=== PATIENT | female | born 1980 | race Two or more races ===

== ENCOUNTER 2022-09-10 12:12 | Emergency (ER) | payer OTHER ==
[2022-09-10 12:20] VITALS: BMI 38.1
[2022-09-10 13:50] LABS: HCG,QUALITATIVE URINE Negative
[2022-09-10 13:52] LABS: EPI CELLS 5 /uL (0-25.1); HYALINE CASTS 0 /uL (0-3.1); PH,URINE 6.5 (5.0-8.0); URINE APPEARANCE CLEAR; URINE BACTERIA 163 /uL (0-1359); URINE BILIRUBIN NEGATIVE (NEGATIVE); URINE COLOR YELLOW; URINE GLUCOSE (UA) 2+ (NEGATIVE); URINE KETONE NEGATIVE (NEGATIVE); URINE LEUK ESTERASE NEGATIVE (NEGATIVE); URINE NITRITE NEGATIVE (NEGATIVE); URINE PROTEIN NEGATIVE (NEGATIVE); URINE RBC 20 /uL (0-23.9); URINE UROBILINOGEN 0.2 mg/dL (0.2-1.0); URINE WBC 5 /uL (0-25.8)
[2022-09-10 18:01] VITALS: BP 110/66; PULSE 68; RESP 16; TEMP 98.6
== END 2022-09-10 18:46 | disposition home or self-care (01) ==
LOC: JER 12:12
DX: N93.9 Abnormal uterine and vaginal bleeding, unspecified (principal); R07.9 Chest pain, unspecified; M54.50 Low back pain, unspecified
CPT/HCPCS: 71046-TC-FY; 76830-TC; 81003; 84703; 87086; 93005; 93010; 99285-25